=== PATIENT | female | born 1970 | race Caucasian/White ===

== ENCOUNTER → 2016-11-22 | Outpatient (RCR) ==
[2015-06-14 18:40] VITALS: BMI 55.3
--- NOTE | 2016-11-09 16:43 | RS.OPPTEV2 ---
Date of Note: 11/09/16 Visit #: 1 Date of Evaluation: 11/09/16 Payer Source: Medicaid Treatment Diagnosis: Low back pain, SI joint dysfunction, Lumbar spondylosis History of Condition/Mechanism of Injury:: Patient reports history of back pain for 13 years. States pain has progressively gotten worse. 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 Reports recent falls in the last 6 months. Prior Level of Function.....Patient was independent with: ADL's, Self Care, Caregiving, Ambulation/Mobility, Community Integration/Access Functional Limitations: Sleep, Self Care, ADL's, Reaching, Pushing, Pulling, Lifting, Carrying, Sitting, Standing, Bending, Squatting, Ambulation, Community Access/Integration Current Subjective/complaints:: Patient reports constant back pain. Also states her hips hurt constantly. Reports there is nothing that gives her relief. Reports no benefit of heat of ice. Has used a TENS unit, but it did not help. States her pain intensity varies depending on what she does. States sitting or riding in a car bothers her back and legs. If she walks too far, such as walking in [place], her buttocks will go numb. States she has to hold onto something if she walks very far, due to fear of her legs buckling. States pain is worse into the left LE, but she also has pain in the posterior aspect of the right knee. Reports difficulty sleeping. States she wakes up often from pain. Reports Gabapentin and Hydrocodone do not help. Medical History Surgical History: (X2) Surgical History Comments:: Carpal Tunnel surgery left. Smoking Status: Current every day smoker Hx Home Medications: Gabapentin, Hydrocodone Patient's Goals: Her goal is to get some relief of low back and LE pain. Pain Assessment - Pain Description Pain Location: low back and LE's. Current Pain Intensity: 4/10 Worst Pain Intensity: 10/10 Functional Outcome Measure Oswestry LBP: 60 - G Codes & Severity Modifier G Codes & Modifier: NA Source of G Code score: NA Observation - Observation Posture: Forward Head, Rounded Shoulders, Decreased Lumbar Lordosis BMI - BMI Weight: 344 lb Height: 5 ft 6 in BMI: 55.5 Gait - Gait Pattern Gait Comments: Patient demonstrates an antalgic gait. She ambulates without an assistive device, independently. - ROM Lumbar Flexion: Hand reach to patellae Sidebending to Left: Reach to Mid-thigh Sidebending to Right: Reach to Lateral Joint Line Lumbar Spine ROM Limitations: Soft Tissue Tightness, Pain Comments: Patient reports more discomfort with sidebending to her left and with lumbar extension. Lumbar spine demonstrates limited mobility during forward flexion, most her movement is at the hips. Bilateral LE AROM is WFL's. - Strength Trunk Lateral Flexion: 3+ Fair+ Trunk Rotation: 3+ Fair+ Comments: Bilateral LE hip flexion 4/5, quads 4/5, HS 4-5, Left DF 4-/5, right DF 5/5. - Special Tests Comments: Unable to perform valid Special Tests due to reports of pain with all mobility and with lying supine. Palpation Comments:: Patient reports tenderness throughout the lumbar parspinals, spinous processes, and SI joints. Direct pressure to the sacrum causes discomfort. Sensation - Sensation Comments: Patient reports decreased light touch throughout the left lateral thigh, medial lower leg, and lateral lower leg. During palpation to the lumbar spine and gluteal musculature, she reports absence of sensation to light touch throughout the left superior gluteal region. Additional Comments: Additional Comments: Bilateral SLR to 55-60. Interventions - Exercise/Activities/Manual Therapy Exercises/Activities: NA Manual Therapy: NA - Charges Total Direct Minutes: 35 mins Total Treatment Time: 35 mins Procedures billed for this date of service:: EVAL medium complexity Assessment Assessment: Patient presents to therapy with diagnosis of low back pain, SI joint dysfunction, lumbar spondylosis. She reports constant low back and LE pain with reports of decreased sensation of the left LE. She exhibits hypomobility of the lumbar spine and decreased tolerance for ROM due to pain. Also displays weakness in the trunk and LE's. Sleep is limited due to pain. She demonstrates potential to benefit from exercises to strengthen the spine and LE's to decrease her pain and improve her level of function. Patient Education: Education of diagnosis, Body/Joint mechanics, Home Exercise Program, Home Safety, Activity Modification, Education of Plan of Care Short Term Goals Goal #1: Pt independent and compliant with basic HEP. Goal to be met by: 11/23/16 Goal #2: Tenderness at the lumbosacral region decreased to mininmal. Goal to be met by: 11/24/16 Goal #3: Bilateral hip strength 4+/5. Goal to be met by: 11/23/16 Goal #4: Trunk strength improved to 4/5. Goal to be met by: 11/23/16 Crime Scene Photographer Goals Goal #1: Pt knows to continue HEP to maintain level of function at discharge. Goal to be met by: 01/08/17 Goal #2: Score on Oswestry LBP scale improved to 38. Goal to be met by: 01/08/17 Goal #3: Pt able to perform light housework and ADL's with minimal back pain. Goal to be met by: 01/08/17 Goal #4: Pt able to sleep 6 hours without interuption from back pain. Goal to be met by: 01/08/17 Plan - Treatment to be Provided Procedures: Therapeutic Exercises, Therapeutic Activity, Patient Education Modalities: Electrical Stimulation, Ultrasound/Phonophoresis, Hot Packs - Treatment Plan Frequency: 3 X week Duration: 6 weeks ORDER # VISITS AND/OR THROUGH DATE: 01/08/17 - Treatment Code (1) Low back pain Qualifiers: Chronicity: chronic Back pain laterality: unspecified Sciatica presence: unspecified whether sciatica present Qualified Description: Chronic low back pain, unspecified back pain laterality, with sciatica presence unspecified Qualifier Code(s): (M54.5) Low back pain (2) SI (sacroiliac) joint dysfunction Comments: M53.3 (3) Physical deconditioning Comments: R53.81 (4) Obesity Qualifiers: Obesity type: unspecified obesity type Obesity severity: morbid Qualified Description: Morbid obesity, unspecified obesity type Qualifier Code(s): (E66.01) Morbid (severe) obesity due to excess calories
--- NOTE | 2016-11-10 10:58 | RS.OPPTDN ---
Subjective Date of Note: 11/10/16 Visit #: 2 Date of Evaluation: 11/09/16 Payer Source: Medicaid Treatment Diagnosis: Low back pain, SI joint dysfunction, Lumbar spondylosis Current Subjective/complaints:: Patient reports HP helps reduce back pain, but c /o pain with exercise including isometric hip adduction. Pain Assessment - Pain Description Pain Location: low back and LE's. Current Pain Intensity: 4/10 average today - Heat/Cryotherapy Treatment: Hot Pack ([id number] to the lowback prior to EX. Patient in sitting. ) Interventions - Exercise/Activities/Manual Therapy Exercises/Activities: [id number] Assisted with hamstring and SKTC stretching. Isomtric hip adduction with ball, isometric hip flexion, short trunk rotation with ball between knee, pelvic tilt, abdominal sets. Patient eduction of HEP, dx , mechanics, and safety. Paitnet given copies of all HEP. Total minutes of Exercise: 25mins Manual Therapy: NA HOME EXERCISE PROGRAM: Hamstring and SKTC stretching. Isomtric hip adduction with ball, isometric hip flexion, short trunk rotation with ball between knee, pelvic tilt - Charges Total Direct Minutes: 25mins Total Treatment Time: 45mins Procedures billed for this date of service:: HP, EX2 Assessment: Patient agrees to work on HEP. She should benefit from progressive exercise and a basic walking program. Patient Education: Education of diagnosis, Body/Joint mechanics, Home Exercise Program, Home Safety, Activity Modification Patient demonstrates compliance with HEP?: Yes Short Term Goals Goal #1: Pt independent and compliant with basic HEP. Goal to be met by: 11/23/16 Progress towards Goal:: Progressing Goal #2: Tenderness at the lumbosacral region decreased to mininmal. Goal to be met by: 11/24/16 Goal #3: Bilateral hip strength 4+/5. Goal to be met by: 11/23/16 Goal #4: Trunk strength improved to 4/5. Goal to be met by: 11/23/16 Crew Leader Goals Goal #1: Pt knows to continue HEP to maintain level of function at discharge. Goal to be met by: 01/08/17 Goal #2: Score on Oswestry LBP scale improved to 38. Goal to be met by: 01/08/17 Goal #3: Pt able to perform light housework and ADL's with minimal back pain. Goal to be met by: 01/08/17 Goal #4: Pt able to sleep 6 hours without interuption from back pain. Goal to be met by: 01/08/17 Plan PLAN OF CARE EXPIRES ON:: 01/08/17 ORDER # VISITS AND/OR THROUGH DATE: 01/08/17 PLAN: Continue Plan of Care
--- NOTE | 2016-11-15 10:56 | RS.OPPTDN ---
Subjective Date of Note: 11/15/16 Visit #: 3 Date of Evaluation: 11/09/16 Payer Source: Medicaid Treatment Diagnosis: Low back pain, SI joint dysfunction, Lumbar spondylosis Current Subjective/complaints:: Reports having a bad weekend. States she was with family and could not exercise. Reports right anterior hip and groin pain with exercise. Pain Assessment - Pain Description Pain Location: low back and LE's. Current Pain Intensity: 4-5/10 average today - Heat/Cryotherapy Treatment: Hot Pack ([id number] to the lowback prior to EX. In sitting. ) Interventions - Exercise/Activities/Manual Therapy Exercises/Activities: [id number] Assisted with hamstring and SKTC stretching. Isomtric hip adduction with ball, isometric hip flexion. Added 6# to weighted ball for short trunk rotation, 3s/5reps. Pelvic tilt, abdominal sets. Began modified bridging. Patient eduction of HEP, dx, mechanics, and safety. Patient given copies new exercise. Discussed need for patient to start a basice walking program. Total minutes of Exercise: 24mins Manual Therapy: NA HOME EXERCISE PROGRAM: Hamstring and SKTC stretching. Isomtric hip adduction with ball, isometric hip flexion, short trunk rotation with ball between knee, pelvic tilt, modified bridging - Charges Total Direct Minutes: 24mins Total Treatment Time: 44mins Procedures billed for this date of service:: HP, EX2 Assessment: Patient not consistently working on HEP. Needs continued education to increase HEP and walking. Patient Education: Body/Joint mechanics, Home Exercise Program, Activity Modification Comments: Extensive education on need for trunk/core strengthening and increasing walking activity. Encouraged patient to focus on starting and being consistent with activities that will improve her health and wellness. Patient demonstrates compliance with HEP?: Yes Short Term Goals Goal #1: Pt independent and compliant with basic HEP. Goal to be met by: 11/23/16 Progress towards Goal:: Progressing Goal #2: Tenderness at the lumbosacral region decreased to mininmal. Goal to be met by: 11/24/16 Goal #3: Bilateral hip strength 4+/5. Goal to be met by: 11/23/16 Goal #4: Trunk strength improved to 4/5. Goal to be met by: 11/23/16 [facility] Goals Goal #1: Pt knows to continue HEP to maintain level of function at discharge. Goal to be met by: 01/08/17 Goal #2: Score on Oswestry LBP scale improved to 38. Goal to be met by: 01/08/17 Goal #3: Pt able to perform light housework and ADL's with minimal back pain. Goal to be met by: 01/08/17 Goal #4: Pt able to sleep 6 hours without interuption from back pain. Goal to be met by: 01/08/17 Plan PLAN OF CARE EXPIRES ON:: 01/08/17 ORDER # VISITS AND/OR THROUGH DATE: 01/08/17 PLAN: Continue Plan of Care (Continue to encourage patient to progress with HEP and walking to increase functional activity.)
--- NOTE | 2016-11-22 09:40 | RS.OPPTDN ---
Subjective Date of Note: 11/22/16 Visit #: 4 Date of Evaluation: 11/09/16 Payer Source: Medicaid Treatment Diagnosis: Low back pain, SI joint dysfunction, Lumbar spondylosis Current Subjective/complaints:: Patient reports she is doing a few more exercises and hamstring stretch is better. States she has an elliptical machine and says she will try to use it for short periods. Pain Assessment - Pain Description Pain Location: low back and LE's. Current Pain Intensity: 4/10 prior to exercise today Worst Pain Intensity: 8-10/10 with some exercise - Heat/Cryotherapy Treatment: Hot Pack ([id number] to the lowack prior to EX. Paitent in sitting. ) Interventions - Exercise/Activities/Manual Therapy Exercises/Activities: [id number] Assisted with hamstring and SKTC stretching. Isometric hip adduction with ball, isometric hip flexion. Ball for short trunk rotation, 3s/5reps. Added 3# to each ankle for alt hip flexion. Isometric trunk rotation. Pelvic tilt and abdominal sets. Modified bridging. Patient eduction of HEP, dx, mechanics, and safety. Discussed patient starting 1min sets on the elliptical machine. Total minutes of Exercise: 25mins Manual Therapy: NA HOME EXERCISE PROGRAM: Hamstring and SKTC stretching. Isomtric hip adduction with ball, isometric hip flexion, short trunk rotation with ball between knee, pelvic tilt, modified bridging. Begin elliptical machine 1min sets. - Charges Total Direct Minutes: 25mins Total Treatment Time: 45mins Procedures billed for this date of service:: HP, EX2 Assessment: Patient progressing with exercises. Patient encouraged to increase mobility with walking program or elliptical. Patient Education: Body/Joint mechanics, Home Exercise Program, Activity Modification Patient demonstrates compliance with HEP?: Yes Short Term Goals Goal #1: Pt independent and compliant with basic HEP. Goal to be met by: 11/23/16 Progress towards Goal:: Progressing Goal #2: Tenderness at the lumbosacral region decreased to mininmal. Goal to be met by: 11/24/16 Goal #3: Bilateral hip strength 4+/5. Goal to be met by: 11/23/16 Progress towards Goal:: Progressing Goal #4: Trunk strength improved to 4/5. Goal to be met by: 11/23/16 Co Founder And Chairman Goals Goal #1: Pt knows to continue HEP to maintain level of function at discharge. Goal to be met by: 01/08/17 Goal #2: Score on Oswestry LBP scale improved to 38. Goal to be met by: 01/08/17 Goal #3: Pt able to perform light housework and ADL's with minimal back pain. Goal to be met by: 01/08/17 Goal #4: Pt able to sleep 6 hours without interuption from back pain. Goal to be met by: 01/08/17 Plan PLAN OF CARE EXPIRES ON:: 01/08/17 ORDER # VISITS AND/OR THROUGH DATE: 01/08/17 PLAN: Continue Plan of Care
== END ==
PROVIDERS: ATTEND Neurological Surgery
DX: M53.3 Sacrococcygeal disorders, not elsewhere classified (principal); M47.816 Spondylosis without myelopathy or radiculopathy, lumbar region; M54.5 Low back pain; R53.81 Other malaise

== ENCOUNTER 2016-12-15 08:15 | Outpatient (RCR) ==
[2015-06-14 18:40] VITALS: BMI 55.3
--- NOTE | 2016-11-24 11:33 | RS.OPPTDN ---
Subjective Date of Note: 11/24/16 Visit #: 5 Date of Evaluation: 11/09/16 Payer Source: Medicaid Treatment Diagnosis: Low back pain, SI joint dysfunction, Lumbar spondylosis Current Subjective/complaints:: Patient reports she has been working on HEP, but has not been on the elliptical machine yet. Pain Assessment - Pain Description Pain Location: low back and LE's. Current Pain Intensity: 4/10 prior to exercise today - Heat/Cryotherapy Treatment: Hot Pack ([id number] to the lowback prior to EX. Patient in sitting. ) Interventions - Exercise/Activities/Manual Therapy Exercises/Activities: [id number] Assisted with hamstring and SKTC stretching. Isometric hip adduction with ball, isometric hip flexion. Increased to 4# ball for short trunk rotation, 10reps. 3# to each ankle for alt hip flexion. Isometric trunk rotation. Pelvic tilt and abdominal sets. Modified bridging. Patient eduction of HEP, dx, mechanics, and safety. Discussed patient starting 1min sets on the elliptical machine. Total minutes of Exercise: 23mins Manual Therapy: NA HOME EXERCISE PROGRAM: Hamstring and SKTC stretching. Isomtric hip adduction with ball, isometric hip flexion, short trunk rotation with ball between knee, pelvic tilt, modified bridging. Begin elliptical machine 1min sets. - Charges Total Direct Minutes: 23mins Total Treatment Time: 43mins Procedures billed for this date of service:: HP, EX2 Assessment: Patient is doing better with exercises in the department. She continues to need encouragement to increase strengthening and walking activity at home. Patient Education: Home Exercise Program, Home Safety, Activity Modification Patient demonstrates compliance with HEP?: Yes Short Term Goals Goal #1: Pt independent and compliant with basic HEP. Goal to be met by: 11/23/16 Progress towards Goal:: Progressing Goal #2: Tenderness at the lumbosacral region decreased to mininmal. Goal to be met by: 11/24/16 Goal #3: Bilateral hip strength 4+/5. Goal to be met by: 11/23/16 Progress towards Goal:: Progressing Goal #4: Trunk strength improved to 4/5. Goal to be met by: 11/23/16 Group Home Goals Goal #1: Pt knows to continue HEP to maintain level of function at discharge. Goal to be met by: 01/08/17 Goal #2: Score on Oswestry LBP scale improved to 38. Goal to be met by: 01/08/17 Goal #3: Pt able to perform light housework and ADL's with minimal back pain. Goal to be met by: 01/08/17 Goal #4: Pt able to sleep 6 hours without interuption from back pain. Goal to be met by: 01/08/17 Plan PLAN OF CARE EXPIRES ON:: 01/08/17 ORDER # VISITS AND/OR THROUGH DATE: 01/08/17 PLAN: Continue Plan of Care
--- NOTE | 2016-11-29 16:25 | RS.OPPTDN ---
Subjective Date of Note: 11/29/16 Visit #: 6 Date of Evaluation: 11/09/16 Payer Source: Medicaid Treatment Diagnosis: Low back pain, SI joint dysfunction, Lumbar spondylosis Current Subjective/complaints:: Reports she is doing her exercises at home.She had to drive to [place], [place] today for Dr. sheffield,is hurting more. Pain Assessment - Pain Description Pain Location: low back and LE's. Pain Description: Dull, Aching Current Pain Intensity: 5-6/10 - Heat/Cryotherapy Treatment: Hot Pack (20 mins. in sititng to lumbar,prior to exercises) Interventions - Exercise/Activities/Manual Therapy Exercises/Activities: x25 mins Assisted with hamstring and SKTC stretching. Isometric hip adduction with ball, isometric hip flexion. Increased to 4# ball for short trunk rotation, 10reps. 3# to each ankle for alt hip flexion. Isometric trunk rotation. Pelvic tilt and abdominal sets. Ended session on elliptical for 1 1/2 mins. Total minutes of Exercise: 25 Manual Therapy: NA Total minutes of Manual Therapy: 0 HOME EXERCISE PROGRAM: Hamstring and SKTC stretching. Isomtric hip adduction with ball, isometric hip flexion, short trunk rotation with ball between knee, pelvic tilt, modified bridging. Begin elliptical machine 1min sets. - Charges Total Direct Minutes: 25 Total Treatment Time: 45 Procedures billed for this date of service:: hp,ex 2 Assessment: Patient reports most discomfort in the L lumbar and hip today with stretches.She was able to tolerate the elliptical at end of PT session ,with report of fatigue ,but no significant elevation of pain.She is attentive to recommendations for pain control and HEP. Patient Education: Body/Joint mechanics, Education of Plan of Care Patient demonstrates compliance with HEP?: Yes Short Term Goals Goal #1: Pt independent and compliant with basic HEP. Goal to be met by: 11/23/16 Progress towards Goal:: Progressing Goal #2: Tenderness at the lumbosacral region decreased to mininmal. Goal to be met by: 11/24/16 Goal #3: Bilateral hip strength 4+/5. Goal to be met by: 11/23/16 Progress towards Goal:: Progressing Goal #4: Trunk strength improved to 4/5. Goal to be met by: 11/23/16 Progress towards Goal:: Progressing Intermediate Goals Goal #1: Pt knows to continue HEP to maintain level of function at discharge. Goal to be met by: 01/08/17 Goal #2: Score on Oswestry LBP scale improved to 38. Goal to be met by: 01/08/17 Goal #3: Pt able to perform light housework and ADL's with minimal back pain. Goal to be met by: 01/08/17 Goal #4: Pt able to sleep 6 hours without interuption from back pain. Goal to be met by: 01/08/17 Plan PLAN OF CARE EXPIRES ON:: 01/08/17 ORDER # VISITS AND/OR THROUGH DATE: 01/08/17 PLAN: Continue Plan of Care
--- NOTE | 2016-12-01 09:29 | RS.OPPTDN ---
Subjective Date of Note: 12/01/16 Visit #: 7 Date of Evaluation: 11/09/16 Payer Source: Medicaid Treatment Diagnosis: Low back pain, SI joint dysfunction, Lumbar spondylosis Current Subjective/complaints:: Patient reports she has been working on HEP but was sick yesterday. States she is pleased she has been able to perform on elliptical. Pain Assessment - Pain Description Pain Location: low back and LE's. Pain Description: Dull, Aching Current Pain Intensity: 5-6/10 Interventions - Exercise/Activities/Manual Therapy Exercises/Activities: x25 mins Assisted with hamstring and SKTC stretching. Isometric hip adduction with ball, isometric hip flexion. 3# to each ankle for alt hip flexion and SAQ's. Isometric trunk rotation. Pelvic tilt and abdominal sets. Red theraband for hip abduction in hook-lying. All 2s/10reps. Increased to 6# ball for short trunk rotation, 15reps. SLR 10reps. Red theraband for scapular retraction, 2s/10reps. Ended session on elliptical for 1 1/2 mins. Total minutes of Exercise: 25mins Manual Therapy: NA HOME EXERCISE PROGRAM: Hamstring and SKTC stretching. Isomtric hip adduction with ball, isometric hip flexion, short trunk rotation with ball between knee, pelvic tilt, modified bridging. Begin elliptical machine 1min sets. Green theraband for scapular retraction. - Charges Total Direct Minutes: 25mins Total Treatment Time: 45mins Procedures billed for this date of service:: HP, EX2 Assessment: Patient is increasing strengthening exercises. Patient Education: Body/Joint mechanics, Home Exercise Program, Activity Modification Patient demonstrates compliance with HEP?: Yes Short Term Goals Goal #1: Pt independent and compliant with basic HEP. Goal to be met by: 11/23/16 Progress towards Goal:: Progressing Goal #2: Tenderness at the lumbosacral region decreased to mininmal. Goal to be met by: 11/24/16 Goal #3: Bilateral hip strength 4+/5. Goal to be met by: 11/23/16 Progress towards Goal:: Progressing Goal #4: Trunk strength improved to 4/5. Goal to be met by: 11/23/16 Progress towards Goal:: Progressing [facility] Goals Goal #1: Pt knows to continue HEP to maintain level of function at discharge. Goal to be met by: 01/08/17 Goal #2: Score on Oswestry LBP scale improved to 38. Goal to be met by: 01/08/17 Goal #3: Pt able to perform light housework and ADL's with minimal back pain. Goal to be met by: 01/08/17 Goal #4: Pt able to sleep 6 hours without interuption from back pain. Goal to be met by: 01/08/17 Plan PLAN OF CARE EXPIRES ON:: 01/08/17 ORDER # VISITS AND/OR THROUGH DATE: 01/08/17 PLAN: Continue Plan of Care
--- NOTE | 2016-12-06 10:17 | RS.OPPTDN ---
Subjective Date of Note: 12/06/16 Visit #: 8 Date of Evaluation: 11/09/16 Payer Source: Medicaid Treatment Diagnosis: Low back pain, SI joint dysfunction, Lumbar spondylosis Current Subjective/complaints:: Patient reports she has been sick over the weekend and did not start walking. She reports she is working on HEP. Pain Assessment - Pain Description Pain Location: low back and LE's. Pain Description: Dull, Aching Current Pain Intensity: 5-6/10 - Heat/Cryotherapy Treatment: Hot Pack ([id number] to the lowback prior to EX. Patient in sitting. ) Interventions - Exercise/Activities/Manual Therapy Exercises/Activities: x25 mins Assisted with hamstring and SKTC stretching. Isometric hip adduction with ball, isometric hip flexion. 4# to each ankle for alt hip flexion and SAQ's. Isometric trunk rotation. Trunk rotation with 4# ball. Pelvic tilt and abdominal sets. Red theraband for hip abduction in hook- lying. All 2s/10reps. SLR 10reps. Elliptical for 2sets of 1 min. Multi-gym for scapular retraction 20#, 2s/10reps. Standing hip extension, 2s/5reps each. Total minutes of Exercise: 25mins Manual Therapy: NA HOME EXERCISE PROGRAM: Hamstring and SKTC stretching. Isomtric hip adduction with ball, isometric hip flexion, short trunk rotation with ball between knee, pelvic tilt, modified bridging. Begin elliptical machine 1min sets. Green theraband for scapular retraction. Standing hip extension. - Charges Total Direct Minutes: 25mins Total Treatment Time: 45mins Procedures billed for this date of service:: HP, EX2 Assessment: Patient continues to need encouragement but is progressing with strengthening. Patient Education: Body/Joint mechanics, Home Exercise Program, Activity Modification Patient demonstrates compliance with HEP?: Yes Short Term Goals Goal #1: Pt independent and compliant with basic HEP. Goal to be met by: 11/23/16 Progress towards Goal:: Met Goal #2: Tenderness at the lumbosacral region decreased to mininmal. Goal to be met by: 11/24/16 Progress towards Goal:: Progressing Goal #3: Bilateral hip strength 4+/5. Goal to be met by: 11/23/16 Progress towards Goal:: Progressing Goal #4: Trunk strength improved to 4/5. 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 Goal to be met by: 01/08/17 Goal #2: Score on Oswestry LBP scale improved to 38. Goal to be met by: 01/08/17 Goal #3: Pt able to perform light housework and ADL's with minimal back pain. Goal to be met by: 01/08/17 Goal #4: Pt able to sleep 6 hours without interuption from back pain. Goal to be met by: 01/08/17 Plan PLAN OF CARE EXPIRES ON:: 01/08/17 ORDER # VISITS AND/OR THROUGH DATE: 01/08/17 PLAN: Continue Plan of Care
--- NOTE | 2016-12-08 09:35 | RS.OPPTDN ---
Subjective Date of Note: 12/08/16 Visit #: 9 Date of Evaluation: 11/09/16 Payer Source: Medicaid Treatment Diagnosis: Low back pain, SI joint dysfunction, Lumbar spondylosis Current Subjective/complaints:: Patient says she is so pleased that she was able to walk all around [facility], [place] and shopping in [place] with 3/10 pain. She says she felt the 3/10 was "heaven" to what she has had in the past. She says her noticed she was walking better and had not been complaining. Pain Assessment - Pain Description Pain Location: low back and LE's. Pain Description: Dull, Aching Current Pain Intensity: 5-6/10 - Heat/Cryotherapy Treatment: Hot Pack (15 mins mid to low back in sitting) Interventions - Exercise/Activities/Manual Therapy Exercises/Activities: x25 mins Assisted with hamstring and SKTC stretching. Isometric hip adduction with ball, isometric hip flexion. 4# to each ankle for alt hip flexion and SAQ's. Isometric trunk rotation. Trunk rotation with 4# ball. Pelvic tilt and abdominal sets. Red theraband for hip abduction in hook- lying. All 2s/10reps. SLR 10reps. Elliptical for 2sets of 1 min. Multi-gym for scapular retraction 20#, 2s/10reps. Standing hip extension, 2s/5reps each. Manual Therapy: NA HOME EXERCISE PROGRAM: Hamstring and SKTC stretching. Isomtric hip adduction with ball, isometric hip flexion, short trunk rotation with ball between knee, pelvic tilt, modified bridging. Begin elliptical machine 1min sets. Green theraband for scapular retraction. Standing hip extension. - Charges Total Direct Minutes: 25 Total Treatment Time: 40 Procedures billed for this date of service:: radha, ex2 Assessment: Patient recently noticed improved ability to shop and walk longer distances with very little pain. Her family is noticing improvement as well with her progress. Patient Education: Education of diagnosis, Body/Joint mechanics, Home Exercise Program, Home Safety, Activity Modification, Education of Plan of Care Patient demonstrates compliance with HEP?: Yes Short Term Goals Goal #1: Pt independent and compliant with basic HEP. Goal to be met by: 11/23/16 Progress towards Goal:: Met Goal #2: Tenderness at the lumbosacral region decreased to mininmal. Goal to be met by: 11/24/16 Progress towards Goal:: Progressing Goal #3: Bilateral hip strength 4+/5. Goal to be met by: 11/23/16 Progress towards Goal:: Progressing Goal #4: Trunk strength improved to 4/5. Goal to be met by: 11/23/16 Progress towards Goal:: Progressing Senior Living Goals Goal #1: Pt knows to continue HEP to maintain level of function at discharge. Goal to be met by: 01/08/17 Goal #2: Score on Oswestry LBP scale improved to 38. Goal to be met by: 01/08/17 Goal #3: Pt able to perform light housework and ADL's with minimal back pain. Goal to be met by: 01/08/17 Goal #4: Pt able to sleep 6 hours without interuption from back pain. Goal to be met by: 01/08/17 Plan PLAN OF CARE EXPIRES ON:: 01/08/17 ORDER # VISITS AND/OR THROUGH DATE: 01/08/17 PLAN: Progress Exercises
--- NOTE | 2016-12-13 10:27 | RS.OPPTDN ---
Subjective Date of Note: 12/13/16 Visit #: 10 Date of Evaluation: 11/09/16 Payer Source: Medicaid Treatment Diagnosis: Low back pain, SI joint dysfunction, Lumbar spondylosis Current Subjective/complaints:: Patient reposrts she is pleased that she was able to walk with shopping the other day and did not have increasead pain. States her even commented on how she did not c/o pain. Pain Assessment - Pain Description Pain Location: low back and LE's. Pain Description: Dull, Aching Current Pain Intensity: 5/10 - Heat/Cryotherapy Treatment: Hot Pack ([id number] to the lowback prior to EX. Patient in sitting. ) Interventions - Exercise/Activities/Manual Therapy Exercises/Activities: [id number] Assisted with hamstring and SKTC stretching. Began piriformis and figure 4 hip stretches. Isometric hip adduction with ball, isometric hip flexion. 4# to each ankle for alt hip flexion. Isometric trunk rotation. Trunk rotation with ball. Pelvic tilt and abdominal sets. Red theraband for hip abduction in hook-lying. All 2s/10reps. SLR 10reps. Elliptical for 2sets of 1 min. Multi-gym for scapular retraction 20#, 2s/10reps and standing hip extension 5#, 10reps each. Reviewed HEP and safety. Paitent given copy of new exercise and blue theraband for progression of scapular retraction. Total minutes of Exercise: 30mins Manual Therapy: NA HOME EXERCISE PROGRAM: Hamstring and SKTC stretching. Isomtric hip adduction with ball, isometric hip flexion, short trunk rotation with ball between knee, pelvic tilt, modified bridging. Begin elliptical machine 1min sets. Green theraband for scapular retraction. Standing hip extension. - Charges Total Direct Minutes: 30mins Total Treatment Time: 45mins Procedures billed for this date of service:: HP, EX2 Assessment: Patient reports progress with functional activities and mobility in the community. Patient Education: Body/Joint mechanics, Home Exercise Program, Home Safety, Activity Modification Patient demonstrates compliance with HEP?: Yes Short Term Goals Goal #1: Pt independent and compliant with basic HEP. Goal to be met by: 11/23/16 Progress towards Goal:: Met Goal #2: Tenderness at the lumbosacral region decreased to mininmal. Goal to be met by: 11/24/16 Progress towards Goal:: Progressing Goal #3: Bilateral hip strength 4+/5. Goal to be met by: 11/23/16 (80%) Progress towards Goal:: Progressing Goal #4: Trunk strength improved to 4/5. 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 Goal to be met by: 01/08/17 Progress towards goal: Progressing Goal #2: Score on Oswestry LBP scale improved to 38. Goal to be met by: 01/08/17 Goal #3: Pt able to perform light housework and ADL's with minimal back pain. Goal to be met by: 01/08/17 Progress towards goal: Progressing Goal #4: Pt able to sleep 6 hours without interuption from back pain. Goal to be met by: 01/08/17 Plan PLAN OF CARE EXPIRES ON:: 01/08/17 ORDER # VISITS AND/OR THROUGH DATE: 01/08/17 PLAN: Continue Plan of Care (Continue progressing strengthening exercise to reduce pain and increase functional activity level.)
--- NOTE | 2016-12-15 16:40 | RS.OPPTDN ---
Subjective Date of Note: 12/15/16 Visit #: 11 Date of Evaluation: 11/09/16 Payer Source: Medicaid Treatment Diagnosis: Low back pain, SI joint dysfunction, Lumbar spondylosis Current Subjective/complaints:: Patient says she is "worn out and sore" today. She says she kept her 2 year old granddaughter yesterday and has increased symptoms. She reports back and LE's sore. Pain Assessment - Pain Description Pain Location: low back and LE's. Pain Description: Dull, Aching Current Pain Intensity: elevated, does not rate - Heat/Cryotherapy Treatment: Hot Pack (15 mins to the mid to low back in chair) Interventions - Exercise/Activities/Manual Therapy Exercises/Activities: [id number] Assisted with hamstring and SKTC stretching. Continued with piriformis and figure 4 hip stretches. Isometric hip adduction with ball, isometric hip flexion. 4# to each ankle for alt hip flexion. Isometric trunk rotation. Trunk rotation with ball. Pelvic tilt and abdominal sets. Red theraband for hip abduction in hook-lying. All 2s/10reps. SLR 10reps. Multi gym for scapular retraction 20#, 2s/10reps and standing hip extension 5#, 10reps each. Omitted elliptical due to patient c/o's. Manual Therapy: NA HOME EXERCISE PROGRAM: Hamstring and SKTC stretching. Isomtric hip adduction with ball, isometric hip flexion, short trunk rotation with ball between knee, pelvic tilt, modified bridging. Begin elliptical machine 1min sets. Green theraband for scapular retraction. Standing hip extension. - Charges Total Direct Minutes: 30 Total Treatment Time: 45 Procedures billed for this date of service:: radha, ex2 Assessment: Patient presents with elevated pain today related to keeping her granddaughter. She shows increased difficulty trying to mark stretches and exercises today. She required more rest breaks today as well. Patient Education: Education of diagnosis, Body/Joint mechanics, Home Exercise Program, Home Safety, Activity Modification, Education of Plan of Care Patient demonstrates compliance with HEP?: Yes Short Term Goals Goal #1: Pt independent and compliant with basic HEP. Goal to be met by: 11/23/16 Progress towards Goal:: Met Goal #2: Tenderness at the lumbosacral region decreased to mininmal. Goal to be met by: 11/24/16 Progress towards Goal:: Progressing Goal #3: Bilateral hip strength 4+/5. Goal to be met by: 11/23/16 (80%) Progress towards Goal:: Progressing Goal #4: Trunk strength improved to 4/5. Goal to be met by: 11/23/16 (100%) Progress towards Goal:: Met Group Home Goals Goal #1: Pt knows to continue HEP to maintain level of function at discharge. Goal to be met by: 01/08/17 Progress towards goal: Progressing Goal #2: Score on Oswestry LBP scale improved to 38. Goal to be met by: 01/08/17 Goal #3: Pt able to perform light housework and ADL's with minimal back pain. Goal to be met by: 01/08/17 Progress towards goal: Progressing Goal #4: Pt able to sleep 6 hours without interuption from back pain. Goal to be met by: 01/08/17 Plan PLAN OF CARE EXPIRES ON:: 01/08/17 ORDER # VISITS AND/OR THROUGH DATE: 01/08/17 PLAN: Progress Exercises
== END 2016-12-20 ==
PROVIDERS: ATTEND Neurological Surgery
DX: M53.3 Sacrococcygeal disorders, not elsewhere classified (principal); M47.816 Spondylosis without myelopathy or radiculopathy, lumbar region; M54.5 Low back pain; R53.81 Other malaise

== ENCOUNTER 2016-12-22 08:37 | Outpatient (RCR) ==
[2015-06-14 18:40] VITALS: BMI 55.3
--- NOTE | 2016-12-22 09:57 | RS.OPPTDN ---
Subjective Date of Note: 12/22/16 Visit #: 12 Date of Evaluation: 11/09/16 Payer Source: Medicaid Treatment Diagnosis: Low back pain, SI joint dysfunction, Lumbar spondylosis Current Subjective/complaints:: Patient reports she has done better since starting therapy. States she is doing HEP and working on elliptical at home. States she is sleeping better. Pain Assessment - Pain Description Pain Location: low back and LE's. Current Pain Intensity: 3-4/10 - Heat/Cryotherapy Treatment: Hot Pack ([id number] to the lowback prior to EX. Patient in sitting. ) Interventions - Exercise/Activities/Manual Therapy Exercises/Activities: [id number] Assisted with hamstring and SKTC stretching. Continued with piriformis and figure 4 hip stretches. Isometric hip adduction with ball, isometric hip flexion. 4# to each ankle for alt hip flexion. Alt hip flexion with wand for overhead shoulder flexion. Isometric trunk rotation. Trunk rotation with ball. Pelvic tilt. Bridging. Red theraband for hip abduction in hook-lying. SLR. Multi gym for scapular retraction 20#, 2s/10reps. Standing hip extension at rail, 10reps each. Elliptical 1 1/2mins and 1min. Reveiwed HEP and patient given additional therabands. Total minutes of Exercise: 30mins Manual Therapy: NA HOME EXERCISE PROGRAM: Hamstring and SKTC stretching. Isomtric hip adduction with ball, isometric hip flexion, short trunk rotation with ball between knee, pelvic tilt, modified bridging. Begin elliptical machine 1min sets. Green theraband for scapular retraction. Standing hip extension. - Objective Findings Observations,measurements,etc.: Patient reassessed Oswestry scale and improved to 42 (was 60 on Eval). - Charges Total Direct Minutes: 30mins Total Treatment Time: 50mins Procedures billed for this date of service:: HP, EX2 Assessment: Patient has progressed well with HEP and improved FOM. She should be able to continue HEP. Met 4 of 8 treatment goals. Patient Education: Body/Joint mechanics, Home Exercise Program, Home Safety, Activity Modification, Education of Plan of Care Patient demonstrates compliance with HEP?: Yes Short Term Goals Goal #1: Pt independent and compliant with basic HEP. Goal to be met by: 11/23/16 (100%) Progress towards Goal:: Met Goal #2: Tenderness at the lumbosacral region decreased to mininmal. Goal to be met by: 11/24/16 Progress towards Goal:: Progressing Goal #3: Bilateral hip strength 4+/5. Goal to be met by: 11/23/16 (100%) Progress towards Goal:: Met Goal #4: Trunk strength improved to 4/5. Goal to be met by: 11/23/16 (100%) Progress towards Goal:: Met [facility] Goals Goal #1: Pt knows to continue HEP to maintain level of function at discharge. Goal to be met by: 01/08/17 Progress towards goal: Progressing Goal #2: Score on Oswestry LBP scale improved to 38. Goal to be met by: 01/08/17 (75%) Progress towards goal: Progressing Comments: Improved to 42 Goal #3: Pt able to perform light housework and ADL's with minimal back pain. Goal to be met by: 01/08/17 (75%) Progress towards goal: Progressing Goal #4: Pt able to sleep 6 hours without interuption from back pain. Goal to be met by: 01/08/17 (100%) Progress towards goal: Met Plan PLAN OF CARE EXPIRES ON:: 01/08/17 ORDER # VISITS AND/OR THROUGH DATE: 01/08/17 PLAN: Plan for Discharge (Patient has completed orders. Discharge at this time with HEP.)
--- NOTE | 2016-12-22 09:59 | RS.QUICKDC ---
Discharge from PT Date of Discharge: 12/22/16 Number of Visits: 12 Reason for Discharge: Patient progressed well and benefitted from progressive exercise. She met 4 of 8 treatment goals and was independent with HEP. She reported a decrease in pain and an increase in sleeping and functional activities at home. Please refer to last daily note for specifics of treatment and goals. Discharge with HEP.
== END 2017-01-20 ==
PROVIDERS: ATTEND Neurological Surgery
DX: M53.3 Sacrococcygeal disorders, not elsewhere classified (principal); M47.816 Spondylosis without myelopathy or radiculopathy, lumbar region; R53.81 Other malaise; M54.5 Low back pain

== ENCOUNTER 2018-04-04 06:25 | Outpatient (CLI) ==
[2015-06-14 18:40] VITALS: BMI 55.3
--- NOTE | 2018-04-05 10:10 | ECHO2D ---
Date of Exam: 04/04/18 Ordering Physician: VENESSA BELLA Room #: OP Reason for Echo: DYSPNEA M-Mode Normal Adult Results LV Dimensions Normal Adult Results AoV Opening excursions >1.6 >1.6 LVEDD-base- 3.5-5.8 5.0 Ao root dimensions 2.0-3.7 3.4 LVESD-base- 3.1-4.6 L. Atrium dimensions 1.9-3.8 4.5 Post. Wall thickness 0.8-1.1 1.3 IV septum (thickness) 0.7-1.2 1.2 Post. Wall excursion 0.72-1.3 NORMAL Septal motion NORMAL Systolic motion R. Ventricular cavity 1.5-2.0 NORMAL LVEF 60% 56% Paradoxical septal wall motion NORMAL 2-D : NORMAL LEFT VENTRICULAR CONTRACTILITY--NORMAL VALVES--NO EFFUSION, NO THROMBUS, NORMAL LEFT VENTRICLE SIZE, ENLARGED LEFT ATRIAL CAVITY M-MODE: MV: NORMAL AV: NORMAL TV: NORMAL PV: CHAMBER SIZE: ENLARGED LEFT ATRIAL CAVITY WALL MOTION: NORMAL PERICARDIUM: NORMAL INTERPRETATION: 1. BORDERLINE LEFT VENTRICULAR HYPERTROPHY WITH ENLARGED LEFT ATRIAL CAVITY 2. NORMAL LEFT VENTRICLE CONTRACTILITY 3. NORMAL VALVES/NORMAL LEFT VENTRICLE SIZE MTDD
== END 2018-04-04 06:26 | disposition home or self-care (01) ==
LOC: CAR 06:25
PROVIDERS: ATTEND Physician Assistant Medical
DX: R06.09 Other forms of dyspnea (principal); F17.210 Nicotine dependence, cigarettes, uncomplicated

== ENCOUNTER 2018-04-16 14:22 | Outpatient (CLI) ==
[2015-06-14 18:40] VITALS: BMI 55.3
--- NOTE | 2018-04-16 16:40 | DI ---
Exam: Two views of the chest. Comparison: 02/06/2017. Reason for exam: Dyspnea. FINDINGS: No pneumothorax, pleural effusion, or focal consolidation. The cardiac silhouette is not enlarged. The imaged osseous structures appear grossly unremarkable without acute fracture. Impression: No acute cardiopulmonary process.
== END 2018-04-16 14:23 | disposition home or self-care (01) ==
LOC: RAD 14:22
PROVIDERS: ATTEND Physician Assistant Medical
DX: R06.09 Other forms of dyspnea (principal)